=== PATIENT | male | born 1970 | race Caucasian/White ===

== ENCOUNTER 2020-09-04 01:23 | Emergency (ER) | payer OTHER ==
[~2020-09-04] VITALS: Ht 193 cm; Wt 98.0 kg
[2020-09-04] MEDS ORDERED: ADVAIR 100-501 EACH INH (01:42)
[2020-09-04] MEDS ORDERED: PROAIR HFA8.5 GM INH (01:42)
--- OUTSIDE RECORDS SUMMARY | 2020-09-04 02:38 | XMS ---
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 Sierra has no Care Guidelines for this patient. Camelia VISIT COUNT (12 MO.) 1 IFTIKHAR Hood TOTAL 1 NOTE: Visits indicate total known visits. ED/UCC VISIT TRACKING (12 MO.) 09/04/2020 01:24 IFTIKHAR [facility]mill[facility] OR TYPE: Emergency COMPLAINT: - RT HAND LACERATION INPATIENT VISIT TRACKING (12 MO.) No inpatient visits to display in this time frame [email or web address]
== END 2020-09-04 02:18 | disposition home or self-care (01) ==
LOC: ED 01:23
DX: S61.314A Laceration without foreign body of right ring finger with damage to nail, initial encounter (principal); W22.8XXA Striking against or struck by other objects, initial encounter; Y99.0 Civilian activity done for income or pay; Z79.899 Other long term (current) drug therapy
CPT/HCPCS: 90471; 90715; 99282-25